=== PATIENT | female | born 1965 | race Caucasian/White ===

== ENCOUNTER → 2016-09-01 | Outpatient (RCR) | payer OTHER | END | disposition home or self-care (01) | LOC: M PT 08-02 08:13 | PROVIDERS: ATTEND Physician Assistant | DX: Z51.89 Encounter for other specified aftercare (principal); M17.12 Unilateral primary osteoarthritis, left knee ==

== ENCOUNTER → 2016-10-01 | Outpatient (RCR) | payer OTHER ==
[~2016-10-01] MED LIST: BUPR15TASR PO; BUPR75TA5 PO; COUM2.5T17 PO; JANU100T PO; METF10004 PO; MORP15TASA PO; PERC5TAB12 PO; RAMI10CA PO; SIMV40TA2 PO
== END | disposition home or self-care (01) ==
LOC: EDBD → M PT 09-07 08:05
PROVIDERS: ATTEND Physician Assistant
DX: Z51.89 Encounter for other specified aftercare (principal); M17.12 Unilateral primary osteoarthritis, left knee

== ENCOUNTER → 2016-10-01 | Outpatient (RCR) | payer MEDICARE, OTHER | END | disposition home or self-care (01) | LOC: EDBD → M PT 09-22 07:38 | PROVIDERS: ATTEND Physician Assistant | DX: Z51.89 Encounter for other specified aftercare (principal); M17.11 Unilateral primary osteoarthritis, right knee | CPT/HCPCS: 97161; G8978; G8979 ==

== ENCOUNTER → 2016-11-01 | Outpatient (RCR) | payer OTHER | LOC: EDBD → M PT 10-06 15:11 | PROVIDERS: ATTEND Physician Assistant | DX: M17.11 Unilateral primary osteoarthritis, right knee (principal) ==

== ENCOUNTER 2016-11-08 07:30 | Outpatient (RCR) | payer OTHER ==
[2016-12-09] MEDS ORDERED: JANU100T PO (09:09)
[2016-12-09] MEDS ORDERED: METF10004 PO (09:09)
[2016-12-09] MEDS ORDERED: BUPR75TA5 PO (09:09)
[2016-12-09] MEDS ORDERED: RAMI10CA PO (09:09)
[2016-12-09] MEDS ORDERED: SIMV40TA2 PO (09:09)
== END 2016-12-02 | disposition home or self-care (01) ==
LOC: EDBD → M PT 07:30
PROVIDERS: ATTEND Physician Assistant
DX: Z51.89 Encounter for other specified aftercare (principal); M17.12 Unilateral primary osteoarthritis, left knee

== ENCOUNTER → 2016-12-09 | Outpatient (CLI) | payer OTHER ==
--- NOTE | 2016-12-09 10:26 | REP ---
Chest x-ray: Two views. History: Hypertension. Elevated cholesterol. Findings: The lungs are symmetrically aerated and clear. Pleural angles are sharp. Heart size is normal. Pulmonary vasculature is not increased. There are degenerative changes in the thoracic spine and a mild scoliotic curvature is seen. Impression: No active disease. Signed by Telly Hamilton MD 12/09/2016 02:42 P
[2016-12-09 11:36] LABS: MEAN CORPUSCULAR HEMOGLOBIN 31.2 pg (27.0-33.0); MEAN CORPUSCULAR VOLUME 92.2 fl (80.0-96.0); WHITE BLOOD COUNT 8.4 K/mm3 (4.0-10.0)
[2016-12-09 11:37] LABS: INR 1.06; MEAN CORPUSCULAR HGB CONC 33.9 g/dl (32.0-36.5); RED CELL DISTRIBUTION WIDTH 13.6 % (11.5-14.5)
[2016-12-09 13:57] LABS: ALBUMIN 3.3 GM/DL (3.2-5.2); ALBUMIN/GLOBULIN RATIO 0.87 (1.00-1.93); ALKALINE PHOSPHATASE 60 U/L (45-117); ALT/SGPT 17 U/L (12-78); ANION GAP 8 MEQ/L (8-16); AST/SGOT 16 U/L (15-37); BILIRUBIN,TOTAL 0.9 MG/DL (0.2-1.0); BLOOD UREA NITROGEN 15 MG/DL (7-18); CALCIUM LEVEL 8.9 MG/DL (8.5-10.1); CARBON DIOXIDE LEVEL 30 MEQ/L (21-32); CHLORIDE LEVEL 100 MEQ/L (98-107); CREATININE FOR GFR 0.47 MG/DL (0.55-1.02); GLOMERULAR FILTRATION RATE > 60.0 (>58); GLUCOSE, FASTING 82 MG/DL (70-105); POTASSIUM SERUM 3.9 MEQ/L (3.5-5.1); SODIUM LEVEL 138 MEQ/L (136-145); TOTAL PROTEIN 7.1 GM/DL (6.4-8.2)
--- NOTE | 2016-12-09 21:19 | ECGEPIP ---
Stationary ECG Study [facility] Test Date: 2016-12-09 Pat Name: NAHUM MEJIAS Department: Room: - Gender: F Chronic Manager: : 1965 Requested By: Bismark Rubio Order Number: [id number] Reading MD: Hieu Ventura Measurements Intervals [place] Rate: 61 P: 35 AR: 162 QRS: 50 QRSD: 91 T: 13 QT: 445 QTc: 449 Interpretive Statements Normal sinus rhythm Delayed anterior R wave progression Comparison tracing not on file Electronically Signed On 12-09-2016 21:19:27 EDT by Hieu Ventura
--- NOTE | 2016-12-23 14:55 | CR ---
DATE OF CONSULTATION: 12/23/2016 HOSPITALIST : Dr. Jose Enrique Benson PRIMARY CARE PROVIDER: ROMMEL Morin REFERRING PHYSICIAN: Dr. Ramiro Sainz REASON FOR CONSULTATION: Management of chronic medical problems. CHIEF COMPLAINT: Left knee pain status post left open reduction, internal fixation (ORIF). HISTORY OF PRESENT ILLNESS: 51-year-old female with a history of diabetes, hypertension, hyperlipidemia, osteoarthritis, anxiety, history of polycystic ovarian disease with irregular menses on chronic metformin, obesity, metabolic syndrome, bilateral knee surgeries, cholecystectomy, wisdom teeth removal, presents for a left total knee arthroplasty with Dr. Ramiro Sainz due to worsening activities of daily living with severe limitations. Despite conservative measures, the patient has had persistent and debilitating symptoms. The patient's A1/c was recently checked and it was 4.9. The patient was deemed to not be diabetic with continued use of metformin for polycystic ovarian syndrome. The hospitalist service was consulted for management of chronic issues. She currently complains of pain at the left knee, slightly improved but still rated at 6 out of 10 at the bedside. She is able to wiggle her toes and has feeling in the lower extremities without issues. On telemetry, heart rate was 49 to 53, sinus rhythm with no AV blocks. PAST MEDICAL HISTORY: 1. Diabetes. 2. Hypertension. 3. Hyperlipidemia. 4. Osteoarthritis. 5. Anxiety. 6. History of polycystic ovarian disease with irregular menses. 7. Obesity. PAST SURGICAL HISTORY: Bilateral knee surgery, cholecystectomy, wisdom teeth removal. SOCIAL HISTORY: Quit smoking over 10 years ago. Denies any current alcohol use. Retired occupational therapist. REVIEW OF SYSTEMS: 12-point system negative aside from positive findings in history of present illness. PHYSICAL EXAMINATION : VITAL SIGNS: Temperature 97.1, pulse 66 and sinus, respiratory rate 20, blood pressure 131/61, 98% on 3 liters nasal cannula. GENERAL: The patient is awake, alert, oriented times three. Answering questions appropriately. Anicteric sclerae. No jaundice. Speaks in full sentences. NECK: Supple. Full range of motion. No lymphadenopathy, thyromegaly or jugular venous distention (JVD). LUNGS: Clear to auscultation. No wheezing, rales or rhonchi. HEART: S1, S2. Sinus rhythm. ABDOMEN: Soft, nontender, nondistended. Positive bowel sounds times four quadrants. EXTREMITIES: Postoperative left knee. Currently with a dressing. No pitting edema bilaterally. Skin warm and dry, well perfused. [place] in color. LABORATORY DATA: 12/09/2016 white count 8.4, hemoglobin 12, hematocrit 37, platelet count 221, sedimentation rate of 49. Sodium 138, potassium 3.9, chloride 100, bicarbonate 30, BUN 15, creatinine 0.47 , glucose of 82, calcium 8.9, ferritin 126, total bilirubin 0.9, AST 16, ALT 17, alkaline phosphatase 60, total protein 7.1, albumin 3.3, albumin-globulin ratio is 0.87. Microbiology: 12/09/2016 urine culture with no growth. Chest x-ray on 12/09/2016 with no active disease. ASSESSMENT AND PLAN: This is a 50-year-old female with a history of polycystic ovarian syndrome on chronic metformin, diabetes, recent A1/c was 4.9, currently not on any diabetic medications, metformin is being used for polycystic ovarian disease for irregular menses, hypertension, hyperlipidemia, osteoarthritis, obesity, anxiety, bilateral knee surgery, cholecystectomy, wisdom teeth removal, who presented for a left knee total arthroplasty secondary to osteoarthritis and limitations of activities of daily living. CURRENT ISSUES: 1. Left total knee arthroplasty, postoperative management per primary team, orthopedic surgery. Physical therapy (PT), deep vein thrombosis (DVT) prophylaxis, pain control, bowel regimen per primary service. 2. Hypertension. Resume home dose of ramipril. 3. Diabetes. Latest A1/c was 4.9, currently not a diabetic, therefore metformin is being used strictly for polycystic ovarian disease. May have no added salt, low cholesterol diet. 4. Hyperlipidemia. Continue on Zocor. Check lipid profile in the morning. 5. History of diabetes. Current A1/c is 4.9. The patient will not need sliding scale, consistent carbohydrate diet. 6. Vitamin D deficiency. May resume vitamin D as an outpatient. 7. History of polycystic ovarian disease with irregular menses. May resume the patient's metformin, being used for polycystic ovarian disease and not for type 2 diabetes. 8. Deep vein thrombosis (DVT) prophylaxis. On Coumadin per orthopedic surgery. Patient will be signed out to Dr. Jose Enrique Benson, Hospitalist talent acquisition consultant, at 7pm 12/23/16. [facility]ALTH[facility]il[facility]
== END ==
LOC: EDBD → M ADMPAT 08:46
PROVIDERS: ATTEND Orthopaedic Surgery
DX: M17.12 Unilateral primary osteoarthritis, left knee (principal)

== ENCOUNTER 2016-12-23 07:16 | Inpatient (IN) | payer OTHER ==
[2016-12-09 09:09] VITALS: BP 112/62
--- NOTE | 2016-12-20 10:09 | HPE ---
DATE OF ADMISSION TO BE ADMITTED: 12/23/2017 ATTENDING PHYSICIAN: Dr. Sainz. CHIEF COMPLAINT: Left knee pain and stiffness. HISTORY: The patient is a pleasant 51-year-old female with progressively worsening left knee pain and stiffness. She continues to have pain with weightbearing activities and activities of daily living. She has not had any improvement in symptoms with conservative measures so she has consented for an elective left total knee arthroplasty with Dr. Sainz. Medical optimization from Edith Callahan received and reviewed during today's appointment. CURRENT MEDICATIONS: - ramipril 10 mg daily - Zocor 10 mg at bedtime - metformin 1000 mg twice daily - Wellbutrin extended release 150 mg daily - ibuprofen 800 mg as needed - vitamin D 50,000 units once monthly. ALLERGIES: There are no known allergies. PAST MEDICAL HISTORY: Diabetes. Hypertension. Hyperlipidemia. Osteoarthritis. Anxiety. History of polycystic ovarian disease with irregular menses. Obesity. PAST SURGICAL HISTORY: Bilateral knee surgery. Cholecystectomy. [place] tooth removal. SOCIAL HISTORY: The patient is a former smoker and quite over 10 years ago. She rarely uses alcohol. REVIEW OF SYSTEMS: The patient denies fever, chills, nausea, vomiting or diarrhea. No chest pain, shortness of breath, lightheadedness or headaches. No complaints of shortness of breath or cough, however, she does have nasal congestion that started approximately 4 days ago. PHYSICAL EXAMINATION: Well-nourished, well-developed female in no apparent distress. VITAL SIGNS: Blood pressure 140/72, heart rate 62, respirations 18, temperature 97.8, height 62.5 inches, weight 215 pounds, body mass index (BMI) 38.8. HEAD: Normocephalic. NECK: Supple without lymphadenopathy or jugular venous distention. HEART: Regular rate and rhythm. LUNGS: Clear to auscultation bilaterally. ABDOMEN: Bowel sounds present. Abdomen soft and nontender to palpation. MUSCULOSKELETAL: Inspection of the left knee does show a previous surgical scar longitudinally. The patient has tenderness along both the medial and lateral joint line of the knee. She can extend to about 10 degrees and flex to about 95 degrees. Left lower extremity strength is normal. No hip irritability elicited today with range of motion. Her calf is soft, nontender to palpation with no palpable cords noted. Distally, she is neurovascularly intact. The patient is walking with a slight limp favoring the left lower extremity. LABORATORY DATA: Chest x-ray: No active disease. EKG: Normal sinus rhythm with delayed anterior R-wave progression. Complete blood count: WBC 8.4, RBC 4.01, hemoglobin 12.5, hematocrit 37, platelets 221, erythrocyte sedimentation rate elevated at 49, prothrombin time 13.9, INR 1.06. Comprehensive metabolic profile: Fasting glucose 82, BUN 15, creatinine for GFR decreased at 0.47, GFR greater than 60, sodium 138, potassium 3.9, chloride 100, carbon dioxide 30, anion gap 8, calcium 8.9, AST 16, ALT 17, alkaline phosphatase 60, total bilirubin 7.1, albumin 3.3, albumin globulin ratio decreased at 0.87. Urinalysis negative with urine culture revealing no growth. Nasal and sinus culture positive for heavy growth of staphylococcus aureus. IMPRESSION: Left knee osteoarthritis with x-rays notable for endstage degenerative changes. PLAN: The patient has consented for an elective left total knee arthroplasty with Dr. Sainz. Medical optimization received from Edith Callahan. CHU
[~2016-12-23] VITALS: Ht 157.5 cm; Wt 96.0 kg
[2016-12-23] VITALS (10 sets, daily range): BP systolic 122–138; BP diastolic 56–67; O2SAT 95
[~2016-12-23 07:16] MED LIST changes: -BUPR15TASR PO; -COUM2.5T17 PO; -MORP15TASA PO; -PERC5TAB12 PO
[2016-12-23] MEDS ORDERED: LIDOCAINE 1% MDV 20ML VIAL SQ ONE (07:30)
[2016-12-23] MEDS ORDERED: LR 1,000 ML IV ONE (07:30)
[2016-12-23] MEDS ORDERED: ACETAMINOPHEN 500 MG TAB PO ONE (08:00)
[2016-12-23 08:20] LABS: CONTROL LINE UCG INT CTR LINE PRESENT
[2016-12-23] MEDS ORDERED: MIDAZOLAM INJ 2 MG/2 ML VIAL (J2250) As Ordered ONE ×2 (08:33→11:24)
[2016-12-23] MEDS ORDERED: fentaNYL 100 MCG/2 ML INJECTION (J3010) As Ordered ONE ×2 (08:33→11:24)
[2016-12-23] MEDS ORDERED: EPINEPHrine INJ 1 MG/ML 1ML AMP As Ordered ONE (08:46)
[2016-12-23] MEDS ORDERED: ceFAZolin 1GM INJ (J0690) As Ordered ONE (08:46)
[2016-12-23] MEDS ORDERED: TRANEXAMIC ACID 100 MG/ML 10ML VIAL As Ordered ONE (08:46)
[2016-12-23] MEDS ORDERED: BUPIVACAINE LIPOSOME/PF 1.3% 20 ML VIAL (13.3MG/ML)(EXPAREL) As Ordered ONE (08:47)
[2016-12-23] MEDS: SIMVASTATIN 10 MG TAB PO SCH (09:00)
[2016-12-23] MEDS: metFORMIN (GLUCOPHAGE) 1000 MG TABLET PO SCH ×2 (09:00→20:32)
[2016-12-23] MEDS: buPROPion **SR TABLET** (ZYBAN) 150MG PO SCH (09:00)
[2016-12-23] MEDS: RAMIPRIL 5 MG CAP PO SCH (09:00)
[2016-12-23] MEDS ORDERED: fentaNYL 100 MCG/2 ML INJECTION (J3010) IV ONE (11:15)
[2016-12-23] MEDS ORDERED: MIDAZOLAM INJ 2 MG/2 ML VIAL (J2250) IV ONE (11:15)
[2016-12-23] MEDS ORDERED: MIDAZOLAM INJ 2 MG/2 ML VIAL (J2250) IV SCH (11:15)
[2016-12-23] MEDS ORDERED: LIDOCAINE 2% INJ 100 MG/5 ML SDV (FOR ANES.) As Ordered ONE (11:24)
[2016-12-23] MEDS ORDERED: PROPOFOL 200 MG/20 ML VIAL As Ordered ONE ×2 (11:24→12:47)
[2016-12-23] MEDS ORDERED: HYDROmorphone HCL 1 MG/ML SYRINGE (J1170) As Ordered ONE (13:45)
[2016-12-23] MEDS ORDERED: MORPHINE 1MG/ML IN 0.9% NACL 100ML IV BAG As Ordered ONE (13:45)
[2016-12-23] MEDS: HYDROmorphone HCL 1 MG/ML SYRINGE (J1170) IV PRN ×5 (13:55→14:30)
[2016-12-23] MEDS ORDERED: DEXTROSE 50% 50 ML SYRINGE IV PRN (14:00)
[2016-12-23] MEDS ORDERED: NALBUPHINE HCL 10 MG/ML AMP (J2300) IV PRN (14:00)
[2016-12-23] MEDS ORDERED: ONDANSETRON 4MG/2ML VIAL (J2405) IV PRN ×2 (14:00)
[2016-12-23] MEDS ORDERED: NALOXONE INJ 0.4 MG/1 ML VIAL (J2310) IV PRN (14:00)
[2016-12-23] MEDS ORDERED: diphenhydrAMINE INJ 50MG/ML VIAL (J1200) IV PRN (14:00)
[2016-12-23] MEDS ORDERED: FLEET ENEMA PR PRN (14:00)
[2016-12-23] MEDS ORDERED: EPIDURAL/PCA KEYS XX PRN (14:00)
[2016-12-23] MEDS ORDERED: LR 1,000 ML IV SCH (14:00)
[2016-12-23] MEDS ORDERED: GLUCOSE 4 GM CHEW TABLET PO PRN (14:00)
[2016-12-23] MEDS ORDERED: GLUCAGON FOR INJ 1 MG VIAL (J1610) SC PRN (14:00)
[2016-12-23] MEDS ORDERED: MORPHINE 1MG/ML IN 0.9% NACL 100ML IV BAG IV PRN (14:00)
[2016-12-23] MEDS ORDERED: ACETAMINOPHEN TAB 650MG DOSE (2X325MG) PO PRN (14:00)
[2016-12-23] MEDS: LR 1,000 ML IV SCH (14:00)
[2016-12-23] MEDS ORDERED: BUPR15TASR PO (14:13)
[2016-12-23] MEDS: fentaNYL 100 MCG/2 ML INJECTION (J3010) IV PRN ×4 (14:44→14:58)
[2016-12-23] MEDS: PERCOCET 5MG/325MG TAB PO PRN ×2 (14:57→15:30)
[2016-12-23] MEDS ORDERED: PERCOCET 5MG/325MG TAB As Ordered ONE (15:22)
[2016-12-23] MEDS ORDERED: WARFARIN SOD 5 MG TAB PO ONE (17:00)
[2016-12-23] MEDS ORDERED: HumaLOG INSULIN (NovoLOG) PER UNIT SC SCH ×2 (17:30→21:00)
[2016-12-24] VITALS (12 sets, daily range): BP systolic 121–153; BP diastolic 58–67; O2SAT 96–98
[2016-12-24] MEDS: LR 1,000 ML IV SCH (02:30)
[2016-12-24 06:08] LABS: BASO % 0.2 % (0.0-1.0); EOS % 0.6 % (0.0-3.0); LARGE UNSTAINED CELL # 0.1 K/mm3 (0.0-0.4); LARGE UNSTAINED CELL % 1.5 % (0.0-4.0); LYMPH # 1.2 K/mm3 (1.5-4.5); LYMPH % 13.1 % (24.0-44.0); MEAN CORPUSCULAR HEMOGLOBIN 31.8 pg (27.0-33.0); MEAN CORPUSCULAR HGB CONC 35.1 g/dl (32.0-36.5); MEAN CORPUSCULAR VOLUME 90.6 fl (80.0-96.0); MONO # 0.5 K/mm3 (0.0-0.8); MONO % 5.5 % (0.0-5.0); NEUTROPHILS # 7.5 K/mm3 (1.8-7.7); NEUTROPHILS % 79.2 % (36.0-66.0); PLATELET COUNT, AUTOMATED 214 k/mm3 (150-450); RED CELL DISTRIBUTION WIDTH 12.9 % (11.5-14.5); WHITE BLOOD COUNT 9.5 K/mm3 (4.0-10.0)
[2016-12-24 06:09] LABS: INR 1.11
[2016-12-24 06:24] LABS: ANION GAP 5 MEQ/L (8-16); BLOOD UREA NITROGEN 13 MG/DL (7-18); CALCIUM LEVEL 8.4 MG/DL (8.5-10.1); CARBON DIOXIDE LEVEL 32 MEQ/L (21-32); CHLORIDE LEVEL 104 MEQ/L (98-107); CHOLESTEROL LEVEL 136 MG/DL (<200); CREATININE FOR GFR 0.55 MG/DL (0.55-1.02); GLOMERULAR FILTRATION RATE > 60.0 (>51); GLUCOSE, FASTING 110 MG/DL (70-105); MAGNESIUM LEVEL 1.6 MG/DL (1.8-2.4); POTASSIUM SERUM 4.1 MEQ/L (3.5-5.1); SODIUM LEVEL 141 MEQ/L (136-145); TRIGLYCERIDES LEVEL 118 MG/DL (<150)
[2016-12-24] MEDS ORDERED: PERCOCET 5MG/325MG TAB PO PRN (06:30)
[2016-12-24] MEDS ORDERED: dexameTHASONE 10 MG/1 ML VIAL PRES.FREE (J1100) ONE (07:57)
[2016-12-24] MEDS ORDERED: ROPIvacaine 0.5% 30 ML INJECTION (J2795) ONE (07:57)
[2016-12-24] MEDS: RAMIPRIL 5 MG CAP PO SCH (08:18)
[2016-12-24] MEDS: MOM 30ML SUSPENSION UDC PO SCH (08:18)
[2016-12-24] MEDS: MIRALAX *UNIT DOSE* 17GM PACKET PO SCH (08:18)
[2016-12-24] MEDS: buPROPion **SR TABLET** (ZYBAN) 150MG PO SCH (08:18)
[2016-12-24] MEDS: SENOKOT S TAB PO SCH ×2 (08:19→19:45)
[2016-12-24] MEDS: metFORMIN (GLUCOPHAGE) 1000 MG TABLET PO SCH ×2 (08:19→19:45)
[2016-12-24] MEDS: MORPHINE 15 MG SA TAB PO SCH ×2 (08:19→20:42)
[2016-12-24] MEDS: SIMVASTATIN 10 MG TAB PO SCH (08:19)
--- NOTE | 2016-12-24 09:27 | RO ---
DATE OF PROCEDURE: 12/23/2016 PREOPERATIVE DIAGNOSES: 1. Severe posttraumatic arthrosis left knee. 2. Status post left Antoni procedure with retained screw. 3. Morbid obesity. POSTOPERATIVE DIAGNOSES: 1. Severe posttraumatic arthrosis left knee. 2. Status post left Antoni procedure with retained screw. 3. Morbid obesity. PROCEDURE: 1. Left total knee arthroplasty using cruciate retaining size 4 narrowing femoral component with a size 3 tibial tray with a 10 mm rotating platform polyethylene insert and a 35 mm polyethylene button. The prosthesis was made [employer] and Lennox/DePuy. It was PFC knee. 2. Removal of retained [place] screw. SURGEON: Bismark Sainz MD RESEARCH AND DEVELOPMENT CHEMIST: Mrs. Nicole Carcamo ANESTHESIA: Spinal with left femoral nerve block. COMPLICATIONS: None. FINDINGS: She had severe deformity of her knee as a result of her posttraumatic arthritis. The [place] screw had to be explored and identified and removed. It was located in the center of the tibial tubercle. DESCRIPTION OF PROCEDURE: Antibiotics were given intravenously preoperatively, and then a successful left femoral nerve block and then spinal anesthetic was induced. Then a tourniquet was placed on left upper thigh and not inflated. Her left lower extremity was carefully prepped and draped in the usual sterile fashion. Then, after appropriate time-out, the leg was elevated and the tourniquet was inflated to 250 mmHg. The previous longitudinal incision was actually a bit lateral, but it was just not lateral enough that I feel I could justify a new longitudinal incision unless I used and incorporated the previous longitudinal incision, but it is a bit more lateral than I would prefer. Nonetheless, we utilized that and used the Bovie cautery to coagulate crossing vessels and then I carefully used thick flaps to dissect over to the medial parapatellar area. Then, a medial parapatellar arthrotomy was performed. Again, Bovie cautery was used to coagulate crossing vessels. Subperiosteal dissection around the proximal and medial portion of the tibia was performed as well as laterally. Eventually, we were able to actually conner the patella and flex the knee. The drill was placed down the center of the femoral canal followed by the distal femoral cutting block set at 10-degree resection level for a left knee at 5-degree valgus. It was pinned into position but, because of her severe flexion contracture, I took an additional 2 mm. The AP sizing jig measured at 3.75; thus, it was set in that position. Then the 3-degree block was pinned into position, and then the 4-in-1 block for the size #4 was attached to the distal femur. Then, taking great care to protect the surrounding soft tissues, the anterior, posterior, and chamfer cuts were performed. At this point, then we exposed the tibia, but there was a large posterior medial osteophyte that I had to first take some time to use an osteotome and various curettes and Cloward rongeurs to eventually remove that large posterior medial osteophyte. This allowed better exposure and allowed us to translate the tibia more easily. The extramedullary alignment jig was utilized to help us estimate being parallel to the mechanical axis of the tibia, and then I referenced off the medial tibial condyle and took only 2 mm from that area to be conservative at first. The block was pinned in position. Secondary check with the extramedullary maite confirmed that we appeared to be parallel to the mechanical axis. The proximal tibial osteotomy was then performed, and we did encounter the [place] screw posteriorly and centrally. Thus, I traced back its trajectory to the area of the tibial tubercle and I used a Bovie to make a longitudinal split into the patellar tendon, and we were thankfully able to come down upon the screw head; and once we cleared the threads, the [place] screw was removed with the [place] screwdriver without difficulty and then we continued to finish off the proximal tibial osteotomy. A lamina story reader was placed lateral, and we performed a completion medial meniscectomy and debridement of posterior medial osteophytes. The lamina story reader was then placed medially, and we performed a completion lateral meniscectomy and debridement of the posterolateral osteophytes. I tried to put the spacer in, but the 10 mm spacer was tight both in flexion and in extension; thus, I elected to take an additional bone cut from the tibia. I re-applied the cutting jig and took four more additional millimeters of resection of the tibia, and this allowed good balance in flexion and in extension using a 10 mm spacer block. Quite surprising, it did not seem to have excess tightness at flexion. Thus, at this point, I then exposed the proximal tibia once again and then sized for a #3 tibial tray, which was pinned in position, followed by the reamer and broach. Trial polyethelene placed and then the femur was placed, and she had remarkably good range of motion and stability to varus/valgus stress testing both in flexion and in extension. Thus, I did not think a PCL sacrificing knee was needed, and I would prefer not to given her relatively young age. I would like to preserve as much bone stock as possible. This is in case a revision surgery is needed in her lifetime. We then extended the knee, everted the patella, clamped it, and performed a patellar osteotomy. We sized for a 35 button. The lug holes were drilled. Trial polyethelene was placed, and the patellofemoral tracking was anatomic. Thus, at this point, I drilled the lug holes for the femur and then removed all the trial components. The Exparel was injected periosteally around the femur medial and laterally as well as posteriorly. Then, Mrs. Nicole Carcamo, my assistant professor of physics, mixed the cement on the back table at this point as I prepared the bony surfaces for cementing with a copious amount of pulsatile lavage irrigant solution. Carlos Alberto was also critical to the success of this very difficult surgery by helping to manipulate the knee, help with appropriate soft tissue retraction, help to close the wound, among many other tasks. When all the bony surfaces were thoroughly dried, I cemented the tibial tray, removed excess cement, placed the polyethylene, cemented the femoral component and removed excess cement, brought the knee into extension, cemented the patellar button, removed excess cement, and held it with a clamp until the cement had hardened; and while we were waiting, we copiously irrigated the knee joint once again, then placed the tranexamic acid, and then began closing the arthrotomy by placing two #1 PDS sutures in the apex of the arthrotomy and one at the medial parapatellar area and then a running double-arm Stratafix was used to close the capsule. Then the tourniquet was released. We irrigated again, then very carefully closed the deep subdermal tissues with #2-0 PDS suture, and then skin was closed with hyacinth covered by Adaptic dry, sterile bulky dressing. She was then transferred to the recovery room in stable condition. There were no intraoperative complications.
--- NOTE | 2016-12-24 09:50 | REP ---
Left knee two views: There is a total knee arthroplasty with the components tightly applied and in satisfactory positions alignment both projections. Skin hyacinth are incidentally identified. Signed by Neto Jerome MD 12/24/2016 09:41 A
[2016-12-24] MEDS: PERCOCET 5MG/325MG TAB PO PRN ×4 (10:00→23:29)
[2016-12-24] MEDS: ONDANSETRON 4 MG TAB (S0181) PO PRN ×2 (11:46→15:46)
--- NOTE | 2016-12-24 14:59 | IPNPDOC ---
Subjective Date Seen The patient was seen on 12/24/16. Subjective Chief Complaint/HPI Patient seen and examined at the bedside swelling. States that she is resting comfortably and denies any acute complaints at this time. Objective Physical Examination General Exam: Positive: Alert, Cooperative, No Acute Distress ENT Exam: Positive: Atraumatic, Mucous membr. moist/pink Neck Exam: Negative: JVD Chest Exam: Positive: Clear to auscultation, Normal air movement Heart Exam: Positive: Rate Normal, Normal S1, Normal S2 Abdomen Exam: Positive: Soft, Negative: Tenderness Extremity Exam: Positive: Other (left knee noted to be wrapped in surgical dressing. Range of motion limited due to recent surgery. Neurovascularly intact distally.) Psych Exam: Positive: Oriented x 3 Assessment /Plan Plan/VTE VTE Prophylaxis Ordered?: Yes Plan s/p Left Knee Replacement Pain Management and DVT prophylaxis as per orthopedic surgery Hypertension Continue Ramipril Dyslipidemia Continue statin Anxiety Continue Wellbutrin Polycystic ovarian syndrome X-linked continue metformin Continue metformin DVT prophylaxis As per primary team VS, I&O, 24H, Fishbone Vital Signs/I&O Vital Signs Date Time Temp Pulse Resp B/P (MAP) Pulse Ox O2 Delivery O2 Flow Rate FiO2 12/24/16 10:37 96 Room Air 12/24/16 10:35 16 12/24/16 08:18 130/68 12/24/16 07:00 97.6 82 2.0 I&O- Last 24 Hours up to 6 AM 12/25/16 05:59 Intake Total 1320 ml Balance 1320 ml Laboratory Data 24H LABS Laboratory Tests 2 12/24/16 05:45: Prothrombin Time 14.5, Prothromb Time International Ratio 1.11 12/24/16 05:46: White Blood Count 9.5, Red Blood Count 3.97L, Hemoglobin 12.6, Hematocrit 36.0, Mean Corpuscular Volume 90.6, Mean Corpuscular Hemoglobin 31.8, Mean Corpuscular Hemoglobin Concent 35.1, Red Cell Distribution Width 12.9, Platelet Count 214, Neutrophils (%) (Auto) 79.2H, Lymphocytes (%) (Auto) 13.1L, Monocytes (%) (Auto) 5.5H, Eosinophils (%) (Auto) 0.6, Basophils (%) (Auto) 0.2 , Neutrophils # (Auto) 7.5, Lymphocytes # (Auto) 1.2L, Monocytes # (Auto) 0.5, Eosinophils # (Auto) 0.0, Basophils # (Auto) 0.0, Large Unclassified Cells % 1.5 , Large Unclassified Cells # 0.1, Anion Gap 5L, Glomerular Filtration Rate > 60.0, Estimated Mean Plasma Glucose 85, Hemoglobin A1c 4.6, Calcium Level 8.4L, Magnesium Level 1.6L, Triglycerides Level 118, LDL Cholesterol 55.4, Total Cholesterol 136, Non-HDL Cholesterol (LDL + VLDL) 79, Total HDL Cholesterol 57, Cholesterol/HDL Ratio 2.385, Thyroid Stimulating Hormone (TSH) 0.723 CBC/BMP Laboratory Tests 12/24/16 05:46 Red Blood Count 3.97 L, Mean Corpuscular Volume 90.6, Mean Corpuscular Hemoglobin 31.8, Mean Corpuscular Hemoglobin Concent 35.1, Red Cell Distribution Width 12.9, Neutrophils (%) (Auto) 79.2 H, Lymphocytes (%) (Auto) 13.1 L, Monocytes (%) (Auto) 5.5 H, Eosinophils (%) (Auto) 0.6, Basophils (%) ( Auto) 0.2, Neutrophils # (Auto) 7.5, Lymphocytes # (Auto) 1.2 L, Monocytes # ( Auto) 0.5, Eosinophils # (Auto) 0.0, Basophils # (Auto) 0.0 LAEXY CINTRON MD Dec 24, 2016 14:59
[2016-12-24] MEDS ORDERED: WARFARIN SOD 5 MG TAB PO ONE (17:00)
[2016-12-24] MEDS: MORPHINE 4 MG/ML 1ML SYRINGE IV PRN ×2 (20:43→23:26)
[2016-12-24] MEDS: diphenhydrAMINE 25 MG CAP PO PRN (23:10)
[2016-12-25] MEDS: diphenhydrAMINE 25 MG CAP PO PRN (04:45)
[2016-12-25] MEDS: MORPHINE 4 MG/ML 1ML SYRINGE IV PRN ×2 (04:46→08:50)
[2016-12-25 06:00] VITALS: BP 152/70
[2016-12-25] MEDS: PERCOCET 5MG/325MG TAB PO PRN ×4 (06:24→20:26)
[2016-12-25 06:27] LABS: MEAN CORPUSCULAR HEMOGLOBIN 31.4 pg (27.0-33.0); MEAN CORPUSCULAR HGB CONC 34.6 g/dl (32.0-36.5); MEAN CORPUSCULAR VOLUME 90.7 fl (80.0-96.0); WHITE BLOOD COUNT 6.9 K/mm3 (4.0-10.0)
[2016-12-25 06:32] LABS: INR 1.29
[2016-12-25 06:59] LABS: ANION GAP 6 MEQ/L (8-16); BLOOD UREA NITROGEN 9 MG/DL (7-18); CALCIUM LEVEL 7.9 MG/DL (8.5-10.1); CARBON DIOXIDE LEVEL 32 MEQ/L (21-32); CHLORIDE LEVEL 104 MEQ/L (98-107); CREATININE FOR GFR 0.43 MG/DL (0.55-1.02); GLOMERULAR FILTRATION RATE > 60.0 (>51); GLUCOSE, FASTING 117 MG/DL (70-105); POTASSIUM SERUM 3.7 MEQ/L (3.5-5.1); SODIUM LEVEL 142 MEQ/L (136-145)
[2016-12-25] MEDS: RAMIPRIL 5 MG CAP PO SCH (08:13)
[2016-12-25] MEDS: MORPHINE 15 MG SA TAB PO SCH ×2 (08:13→20:25)
[2016-12-25] MEDS: metFORMIN (GLUCOPHAGE) 1000 MG TABLET PO SCH ×2 (08:14→20:25)
[2016-12-25] MEDS: MOM 30ML SUSPENSION UDC PO SCH (08:14)
[2016-12-25] MEDS: SENOKOT S TAB PO SCH ×2 (08:14→20:25)
[2016-12-25] MEDS: MIRALAX *UNIT DOSE* 17GM PACKET PO SCH (08:14)
[2016-12-25] MEDS: SIMVASTATIN 10 MG TAB PO SCH (08:14)
[2016-12-25] MEDS: buPROPion **SR TABLET** (ZYBAN) 150MG PO SCH (08:15)
[2016-12-25] MEDS ORDERED: MAGNESIUM CITRATE 300 ML BTL PO ONE (08:45)
[2016-12-25] MEDS: ONDANSETRON 4 MG TAB (S0181) PO PRN ×2 (08:49→17:05)
[2016-12-25] MEDS ORDERED: MAGNESIUM CITRATE 300 ML BTL PO PRN (11:00)
[2016-12-25] MEDS: CYCLOBENZAPRINE 10 MG TAB PO SCH ×2 (12:25→20:25)
--- NOTE | 2016-12-25 12:50 | IPNPDOC ---
Subjective Date Seen The patient was seen on 12/25/16. Subjective Chief Complaint/HPI Patient seen and examined at the bedside. Denies any acute complaints at this time. Objective Physical Examination General Exam: Positive: Alert, Cooperative, No Acute Distress ENT Exam: Positive: Atraumatic, Mucous membr. moist/pink Neck Exam: Negative: JVD Chest Exam: Positive: Clear to auscultation, Normal air movement Heart Exam: Positive: Rate Normal, Normal S1, Normal S2 Abdomen Exam: Positive: Soft, Negative: Tenderness Extremity Exam: Positive: Other (left knee noted to be wrapped in surgical dressing. Range of motion limited due to recent surgery. Neurovascularly intact distally.) Psych Exam: Positive: Oriented x 3 Assessment /Plan Plan/VTE VTE Prophylaxis Ordered?: Yes Plan s/p Left Knee Replacement Pain Management and DVT prophylaxis as per orthopedic surgery Hypertension Continue Ramipril Dyslipidemia Continue statin Anxiety Continue Wellbutrin Polycystic ovarian syndrome X-linked continue metformin Continue metformin DVT prophylaxis As per primary team VS, I&O, 24H, Fishbone Vital Signs/I&O Vital Signs Date Time Temp Pulse Resp B/P (MAP) Pulse Ox O2 Delivery O2 Flow Rate FiO2 12/25/16 11:30 18 12/25/16 10:54 Nasal Cannula 2.0 12/25/16 08:13 94 12/25/16 08:13 152/70 12/25/16 06:00 98.7 72 I&O- Last 24 Hours up to 6 AM 12/26/16 06:00 Intake Total 120 ml Balance 120 ml Laboratory Data 24H LABS Laboratory Tests 2 12/25/16 05:55: Prothrombin Time 16.4H, Prothromb Time International Ratio 1.29, Anion Gap 6L, Glomerular Filtration Rate > 60.0, Blood Urea Nitrogen 9, Creatinine 0.43L, Sodium Level 142, Potassium Level 3.7, Chloride Level 104, Carbon Dioxide Level 32, Calcium Level 7.9L CBC/BMP Laboratory Tests 12/25/16 05:55 Red Blood Count 3.53 L, Mean Corpuscular Volume 90.7, Mean Corpuscular Hemoglobin 31.4, Mean Corpuscular Hemoglobin Concent 34.6, Red Cell Distribution Width 13.0, Calcium Level 7.9 L ALEXY CINTRON MD Dec 25, 2016 12:50
[2016-12-25 14:00] VITALS: BP 143/65
[2016-12-25] MEDS ORDERED: WARFARIN SOD 3 MG TAB PO ONE (17:00)
[2016-12-25 21:52] VITALS: O2SAT 98
[2016-12-25 22:00] VITALS: BP 134/60
[2016-12-26] MEDS: PERCOCET 5MG/325MG TAB PO PRN ×4 (00:33→14:30)
[2016-12-26] MEDS: CYCLOBENZAPRINE 10 MG TAB PO SCH ×2 (05:58→14:29)
[2016-12-26 06:00] VITALS: BP 138/67
[2016-12-26 06:36] LABS: INR 1.27
[2016-12-26 06:38] LABS: MEAN CORPUSCULAR HEMOGLOBIN 32.1 pg (27.0-33.0); MEAN CORPUSCULAR HGB CONC 35.2 g/dl (32.0-36.5); MEAN CORPUSCULAR VOLUME 91.2 fl (80.0-96.0); RED CELL DISTRIBUTION WIDTH 12.9 % (11.5-14.5); WHITE BLOOD COUNT 7.2 K/mm3 (4.0-10.0)
[2016-12-26 07:07] LABS: ANION GAP 5 MEQ/L (8-16); BLOOD UREA NITROGEN 8 MG/DL (7-18); CALCIUM LEVEL 7.8 MG/DL (8.5-10.1); CARBON DIOXIDE LEVEL 35 MEQ/L (21-32); CHLORIDE LEVEL 101 MEQ/L (98-107); GLOMERULAR FILTRATION RATE > 60.0 (>51); GLUCOSE, FASTING 135 MG/DL (70-105); POTASSIUM SERUM 3.7 MEQ/L (3.5-5.1); SODIUM LEVEL 141 MEQ/L (136-145)
[2016-12-26] MEDS ORDERED: MAGNESIUM CITRATE 300 ML BTL PO ONE ×2 (07:15→07:45)
[2016-12-26] MEDS ORDERED: FLEET ENEMA PR PRN (07:15)
[2016-12-26] MEDS ORDERED: MAGNESIUM CITRATE 300 ML BTL PO PRN (07:30)
[2016-12-26] MEDS ORDERED: PERC5TAB12 PO (08:39)
[2016-12-26] MEDS ORDERED: COUM2.5T17 PO (08:39)
[2016-12-26] MEDS ORDERED: MORP15TASA PO (08:39)
[2016-12-26] MEDS ORDERED: ENOXAPARIN 40 MG/0.4 ML SYRINGE (J1650) SC ONE (08:45)
[2016-12-26 09:00] VITALS: BP 138/67
[2016-12-26] MEDS: MOM 30ML SUSPENSION UDC PO SCH (09:00)
[2016-12-26] MEDS: RAMIPRIL 5 MG CAP PO SCH (09:00)
[2016-12-26] MEDS: MIRALAX *UNIT DOSE* 17GM PACKET PO SCH (09:00)
[2016-12-26] MEDS: MORPHINE 15 MG SA TAB PO SCH (09:00)
[2016-12-26] MEDS: buPROPion **SR TABLET** (ZYBAN) 150MG PO SCH (09:08)
[2016-12-26] MEDS: metFORMIN (GLUCOPHAGE) 1000 MG TABLET PO SCH (09:08)
[2016-12-26] MEDS: SENOKOT S TAB PO SCH (09:09)
[2016-12-26] MEDS: SIMVASTATIN 10 MG TAB PO SCH (09:09)
[2016-12-26 14:00] VITALS: BP 132/68
--- NOTE | 2016-12-29 11:10 | DSES ---
DATE OF ADMISSION: 12/23/2016 DATE OF DISCHARGE: 12/26/2016 ATTENDING PHYSICIAN: Dr. Ramiro Sainz. ADMISSION DIAGNOSIS: Osteoarthritis left knee. OTHER DIAGNOSES: Hypertension. Elevated lipids. Anxiety. Polycystic ovarian syndrome. DISCHARGE DIAGNOSIS: Osteoarthritis left knee status post left total knee arthroplasty. HISTORY: This is a pleasant 51-year-old female patient with progressively worsening left knee pain and stiffness from a work-related injury. She continued to struggle with pain in that left knee. She has been through quite aggressive conservative measures without improvement of her symptoms. She elected for her surgery for continued symptoms. She was admitted for elective left knee replacement. OPERATION PERFORMED: Left total knee arthroplasty. HOSPITAL COURSE: The patient was admitted on day of surgery and underwent a left total knee arthroplasty which was uneventful. She did struggle with pain control throughout the postoperative period but ultimately she was able to get her pain under control with oral medications and she was discharged to home. She is weightbearing as tolerated on her left lower extremity. She will move her left knee to prevent stiffness. She will use adjusted dose Coumadin and thromboembolic deterrent stockings (TEDS) for 30 days postoperative for deep venous thrombosis (DVT) prophylaxis. She will resume her preoperative medications and diet. She will use oral pain medications for pain control. She will follow up in our office in 10-14 days for surgical followup. She was given instructions to include but not limited to wound monitoring and activity limitations. Please refer to the medical record for further details.
== END 2016-12-26 16:05 | disposition home health service (06) | DRG 302 ==
LOC: EDBD → M OR 07:16 → M MS5PR 15:48
PROVIDERS: ADMIT Orthopaedic Surgery; ATTEND Orthopaedic Surgery
PROC: 0QPG04Z Removal of Internal Fixation Device from Right Tibia, Open Approach (ICD-10-PCS; 2016-12-23)
PROC: 0SRC0J9 Replacement of Right Knee Joint with Synthetic Substitute, Cemented, Open Approach (ICD-10-PCS; principal; 2016-12-23 10:15)
DX: M17.11 Unilateral primary osteoarthritis, right knee (principal); E66.01 Morbid (severe) obesity due to excess calories; I10 Essential (primary) hypertension; Z79.899 Other long term (current) drug therapy; E11.9 Type 2 diabetes mellitus without complications; E78.5 Hyperlipidemia, unspecified; F41.9 Anxiety disorder, unspecified; Z87.891 Personal history of nicotine dependence

== ENCOUNTER → 2017-01-06 | Outpatient (REF) | payer OTHER ==
[~2017-01-06] MED LIST changes: +BUPR15TASR PO; +COUM2.5T17 PO; +MORP15TASA PO; +PERC5TAB12 PO
[2017-01-06 12:42] LABS: INR 1.32
== END ==
LOC: M LABDRAW1 11:24
PROVIDERS: ATTEND Orthopaedic Surgery
DX: Z79.01 Long term (current) use of anticoagulants (principal)

== ENCOUNTER 2017-01-31 10:44 | Outpatient (RCR) | payer OTHER | END 2017-02-01 | LOC: M PT 10:44 | PROVIDERS: ATTEND Orthopaedic Surgery | DX: Z51.89 Encounter for other specified aftercare (principal); Z96.652 Presence of left artificial knee joint ==

== ENCOUNTER 2017-03-02 14:45 | Outpatient (RCR) | payer OTHER | END 2017-03-03 | LOC: M PT 14:45 | PROVIDERS: ATTEND Orthopaedic Surgery | DX: Z47.1 Aftercare following joint replacement surgery (principal); Z96.652 Presence of left artificial knee joint ==

== ENCOUNTER 2017-03-04 08:29 | Outpatient (RCR) | payer OTHER | END 2017-04-03 | LOC: M PT 03-07 09:08 | DX: Z51.89 Encounter for other specified aftercare (principal); Z96.651 Presence of right artificial knee joint ==

== ENCOUNTER 2017-04-15 08:24 | Outpatient (RCR) | payer OTHER | END 2017-05-04 | LOC: M PT 04-19 12:41 | DX: Z51.89 Encounter for other specified aftercare (principal); Z96.652 Presence of left artificial knee joint ==

== ENCOUNTER → 2017-04-27 | Outpatient (REF) | payer MEDICARE, OTHER ==
[2017-04-27 13:39] LABS: FOLLICLE STIMULATING HORMONE 4.5 mIU/mL
[2017-04-27 13:39] LABS: LUTEINIZING HORMONE 8.3 mIU/mL
== END ==
LOC: M LAB REF 12:26
DX: E28.2 Polycystic ovarian syndrome (principal)
CPT/HCPCS: 83001

== ENCOUNTER 2017-05-05 13:11 | Outpatient (RCR) | payer OTHER | END 2017-06-01 | LOC: M PT 05-10 12:45 | DX: Z51.89 Encounter for other specified aftercare (principal); Z96.651 Presence of right artificial knee joint ==

== ENCOUNTER → 2017-05-11 | Outpatient (REF) | payer MEDICARE, OTHER ==
[2017-05-11 13:23] LABS: FREE T3 2.5 PG/ML (2.2-4.0)
== END ==
LOC: M LAB REF 12:32
DX: E88.81 Metabolic syndrome and other insulin resistance (principal)
CPT/HCPCS: 84481

== ENCOUNTER → 2017-11-09 | Outpatient (REF) | payer MEDICARE, OTHER ==
[2017-11-09 13:42] LABS: RHEUMATOID FACTOR QUANT < 10.0 IU/ML (<15.0)
[2017-11-09 13:42] LABS: C REACTIVE PROTEIN QUANTITATIV 0.67 MG/DL (0.00-0.30)
[2017-11-10 14:17] LABS: ANTI DOUBLE STRAND-DNA AB 28 IU/mL (0-9); ANTINUCLEAR ANTIBODIES DIRECT Positive (Negative); RNP ANTIBODIES <0.2 AI (0.0-0.9); SJOGREN'S ANTI SS-A <0.2 AI (0.0-0.9); SJOGREN'S ANTI SS-B <0.2 AI (0.0-0.9); SMITH ANTIBODIES 0.2 AI (0.0-0.9)
== END ==
LOC: M LAB REF 13:03
DX: M25.50 Pain in unspecified joint (principal)
CPT/HCPCS: 86140

== ENCOUNTER → 2018-02-08 | Outpatient (CLI) | payer MEDICARE, OTHER | LOC: M LRY 09:20 | DX: M16.11 Unilateral primary osteoarthritis, right hip (principal); M25.751 Osteophyte, right hip; R79.89 Other specified abnormal findings of blood chemistry; R76.8 Other specified abnormal immunological findings in serum | CPT/HCPCS: 72202; 84550 ==

== ENCOUNTER → 2018-02-08 | Outpatient (REF) | payer MEDICARE, OTHER ==
[2018-02-08 11:41] LABS: BASO % 0.5 % (0.0-1.0); EOS # 0.1 10^3/uL (0.0-0.50); EOS % 1.4 % (0.0-3.0); HEMATOCRIT 40.8 % (36.0-47.0); HEMOGLOBIN 13.9 g/dl (12.0-15.5); IMMATURE GRANULOCYTE % 0.4 % (0-3.0); LYMPH # 1.8 10^3/uL (1.5-4.5); LYMPH % 32.3 % (24.0-44.0); MEAN CORPUSCULAR HEMOGLOBIN 30.8 pg (27.0-33.0); MEAN CORPUSCULAR HGB CONC 34.1 g/dl (32.0-36.5); MEAN CORPUSCULAR VOLUME 90.5 fl (80.0-96.0); MONO # 0.4 10^3/uL (0.0-0.8); MONO % 7.8 % (0.0-5.0); NEUTROPHILS # 3.3 10^3/uL (1.8-7.7); NEUTROPHILS % 57.6 % (36.0-66.0); PLATELET COUNT, AUTOMATED 187 10^3/uL (150-450); RED BLOOD COUNT 4.51 10^6/uL (4.00-5.40); RED CELL DISTRIBUTION WIDTH 12.9 % (11.5-14.5); WHITE BLOOD COUNT 5.7 10^3/uL (4.0-10.0)
[2018-02-08 11:46] LABS: URIC ACID 5.5 MG/DL (2.6-6.0)
[2018-02-08 11:48] LABS: ALBUMIN 3.7 GM/DL (3.2-5.2); ALBUMIN/GLOBULIN RATIO 0.95 (1.00-1.93); ALKALINE PHOSPHATASE 58 U/L (45-117); ALT/SGPT 18 U/L (12-78); ANION GAP 5 MEQ/L (8-16); APPEARANCE, URINE CLEAR (CLEAR); AST/SGOT 17 U/L (7-37); BACTERIA, URINE AUTO NEGATIVE (NEGATIVE); BILIRUBIN, URINE AUTO NEGATIVE (NEGATIVE); BILIRUBIN,TOTAL 0.5 MG/DL (0.2-1.0); BLOOD UREA NITROGEN 32 MG/DL (7-18); BLOOD, URINE BLOOD NEGATIVE (NEGATIVE); C REACTIVE PROTEIN QUANTITATIV < 0.30 MG/DL (0.00-0.30); CALCIUM LEVEL 9.5 MG/DL (8.5-10.1); CARBON DIOXIDE LEVEL 31 MEQ/L (21-32); CHLORIDE LEVEL 102 MEQ/L (98-107); COLOR, URINE YELLOW (YELLOW); COMPLEMENT C3 107 MG/DL (90-180); CREATININE FOR GFR 0.55 MG/DL (0.55-1.30); GLOMERULAR FILTRATION RATE > 60.0 (>51); GLUCOSE, FASTING 129 MG/DL (70-100); GLUCOSE, URINE (UA) AUTO NEGATIVE (NEGATIVE); KETONE, URINE AUTO NEGATIVE (NEGATIVE); LEUKOCYTE ESTERASE, URINE AUTO NEGATIVE (NEGATIVE); MUCUS, URINE SMALL (NEGATIVE); NITRITE, URINE AUTO NEGATIVE (NEGATIVE); POTASSIUM SERUM 4.1 MEQ/L (3.5-5.1); PROTEIN, URINE AUTO NEGATIVE (NEGATIVE); RBC, URINE AUTO 0 /HPF (0-3); RHEUMATOID FACTOR QUANT < 10.0 IU/ML (<15.0); SODIUM LEVEL 138 MEQ/L (136-145); SPECIFIC GRAVITY URINE AUTO 1.018 (1.002-1.035); SQUAMOUS EPITHELIAL CELL UR AU 2 /HPF (0-6); TOTAL PROTEIN 7.6 GM/DL (6.4-8.2); UROBILINOGEN, URINE AUTO 0.2 mg/dL (0.0-2.0); WBC, URINE AUTO 1 /HPF (0-3)
[2018-02-08 12:03] LABS: ERYTHROCYTE SEDIMENTATION RATE 41 mm/hr (0-30)
[2018-02-08 12:23] LABS: CREATININE,RANDOM URINE 55.2 MG/DL; TOTAL PROTEIN,RANDOM URINE 7.2 MG/DL (0.0-12.0)
== END ==
LOC: M SFHCLERA 09:07
DX: R76.8 Other specified abnormal immunological findings in serum (principal); M79.89 Other specified soft tissue disorders
CPT/HCPCS: 84550

== ENCOUNTER → 2018-10-09 | Outpatient (REF) | payer MEDICARE, OTHER ==
[~2018-10-09] MED LIST changes: -RAMI10CA PO; +RAMI1CAP26 PO
== END ==
LOC: M LAB REF 12:42
PROVIDERS: ATTEND Family Medicine
DX: N92.6 Irregular menstruation, unspecified (principal)

== ENCOUNTER → 2022-09-08 | Outpatient (CLI) | payer MEDICARE, OTHER ==
[~2022-09-08] MED LIST changes: -SIMV40TA2 PO; +SIMV40TA20 PO
== END ==
LOC: M RAD 10:37
PROVIDERS: ATTEND Obstetrics & Gynecology
DX: N95.0 Postmenopausal bleeding (principal); R93.89 Abnormal findings on diagnostic imaging of other specified body structures

== ENCOUNTER 2022-11-03 11:50 | Day surgery (SDC) | payer MEDICARE, OTHER ==
[~2022-11-03] VITALS: Ht 157.5 cm; Wt 115.4 kg
[~2022-11-03 11:50] MED LIST changes: +DULA3PEN SQ; +ERGO500029 PO
[2022-11-03 12:24] LABS: HEMATOCRIT 37.9 % (36.0-47.0); HEMOGLOBIN 12.2 g/dl (12.0-15.5); MEAN CORPUSCULAR HEMOGLOBIN 29.8 pg (27.0-33.0); MEAN CORPUSCULAR HGB CONC 32.2 g/dl (32.0-36.5); MEAN CORPUSCULAR VOLUME 92.4 fl (80.0-96.0); PLATELET COUNT, AUTOMATED 273 10^3/uL (150-450); WHITE BLOOD COUNT 7.4 10^3/uL (4.0-10.0)
[2022-11-03] MEDS ORDERED: propofoL 200 MG/20 ML VIAL As Ordered ONE ×2 (14:38→15:04)
[2022-11-03] MEDS ORDERED: ACETAMINOPHEN 1000MG 100ML IV BAG As Ordered ONE (14:38)
[2022-11-03] MEDS ORDERED: ONDANSETRON 4MG 2ML VIAL As Ordered ONE (14:38)
[2022-11-03] MEDS ORDERED: LIDOCAINE 2% 100MG/5ML SDV (FOR ANES.) As Ordered ONE (14:38)
[2022-11-03] MEDS ORDERED: KETOROLAC 60MG 2ML VIAL As Ordered ONE (14:38)
[2022-11-03] MEDS ORDERED: fentaNYL 100 MCG/2 ML INJECTION As Ordered ONE ×2 (14:38→15:11)
[2022-11-03] MEDS ORDERED: METOCLOPRAMIDE INJ 10MG/2ML VIAL As Ordered ONE (14:38)
[2022-11-03] MEDS ORDERED: MIDAZOLAM INJ 2MG/2ML VIAL As Ordered ONE (14:38)
[2022-11-03] MEDS ORDERED: ROCURONIUM BROMIDE 50MG/5ML VIAL As Ordered ONE (15:42)
[2022-11-03] MEDS ORDERED: SUGAMMADEX SODIUM 500 MG/5 ML VIAL (BRIDION) As Ordered ONE (15:43)
[2022-11-03] MEDS ORDERED: HYDROmorphone HCL 2MG/ML 1ML VIAL As Ordered ONE (15:57)
[2022-11-03] MEDS ORDERED: DESFLURANE 240 ML INHALANT As Ordered ONE (16:07)
[2022-11-03] MEDS ORDERED: PERC5TAB12 PO (17:57)
[2022-11-03] MEDS ORDERED: ONDANSETRON 4MG 2ML VIAL IV PRN (18:10)
[2022-11-03] MEDS ORDERED: LR 1,000 ML IV SCH ×2 (18:10→18:45)
[2022-11-03] MEDS ORDERED: fentaNYL 100 MCG/2 ML INJECTION IV PRN (18:10)
[2022-11-03] MEDS ORDERED: oxyCODONE 5MG TAB PO PRN (18:10)
[2022-11-03] MEDS ORDERED: HYDROMORPHONE HCL 0.5 MG/ 0.5 ML SYRINGE IV PRN (18:10)
[2022-11-03 18:42] LABS: HEMATOCRIT 38.7 % (36.0-47.0); HEMOGLOBIN 12.4 g/dl (12.0-15.5); MEAN CORPUSCULAR HEMOGLOBIN 29.2 pg (27.0-33.0); MEAN CORPUSCULAR VOLUME 91.3 fl (80.0-96.0); PLATELET COUNT, AUTOMATED 238 10^3/uL (150-450); RED BLOOD COUNT 4.24 10^6/uL (4.00-5.40); WHITE BLOOD COUNT 9.6 10^3/uL (4.0-10.0)
[2022-11-03 18:55] VITALS: BP 138/60; TEMP 98.1; O2SAT 96
[2022-11-03 19:30] VITALS: BP 136/68; TEMP 98.4; O2SAT 94
[2022-11-03 20:00] VITALS: BP 133/62; TEMP 97.9; O2SAT 96
[2022-11-03 21:00] VITALS: BP 132/64; TEMP 97.6; O2SAT 97
[2022-11-03] MEDS: IBUPROFEN 800 MG TAB PO SCH (21:12)
[2022-11-03 22:00] VITALS: BP 126/60; TEMP 97.7; O2SAT 96
[2022-11-03 23:20] VITALS: BP 118/56; TEMP 97.6; O2SAT 96
[2022-11-04] MEDS: PERCOCET 5MG/325MG TAB PO PRN ×2 (00:37→04:50)
[2022-11-04 00:38] VITALS: BP 123/62; TEMP 98.7; O2SAT 95
[2022-11-04] MEDS: IBUPROFEN 800 MG TAB PO SCH ×2 (03:33→08:04)
[2022-11-04 04:00] VITALS: BP 116/59; TEMP 98.1; O2SAT 97
[2022-11-04 07:30] VITALS: BP 119/55; TEMP 97.5; O2SAT 97
== END 2022-11-04 08:57 | disposition home or self-care (01) ==
LOC: M SDC 11:50 → M PED 18:50 → M SDC 11-04 08:57
PROVIDERS: ATTEND Obstetrics & Gynecology
DX: N84.0 Polyp of corpus uteri (principal); D25.9 Leiomyoma of uterus, unspecified; F41.9 Anxiety disorder, unspecified; E28.2 Polycystic ovarian syndrome; E11.9 Type 2 diabetes mellitus without complications; E78.5 Hyperlipidemia, unspecified; G47.33 Obstructive sleep apnea (adult) (pediatric); Z79.899 Other long term (current) drug therapy
CPT/HCPCS: 36415; 58571; 82330; 82947; 84132; 84295; 85014; 85027; 86850; 86900; 86901; 88305; 88307; 88331; 96360; 96361; J0131; J1100; J1170; J1885; J2250; J2405; J2765; J3010; S2900